=== PATIENT | female | born 1985 | race African-American/Black ===

== ENCOUNTER 2017-07-03 17:20 | Emergency (ER) | payer OTHER, MEDICAID ==
[~2017-07-03] VITALS: Ht 160 cm; Wt 82.6 kg
[2017-07-03 17:26] VITALS: BP 114/62
--- NOTE | 2017-07-03 17:28 | NUR ---
Pt w/c assisted to bed 11.
--- NOTE | 2017-07-03 17:29 | NUR ---
PATIENT PRESENTS TO ED WITH C/O headache since this am with nausea hx migraines; DENIES N/V/D; SKIN IS PINK/WARM/DRY; AAOX4 WITH EVEN AND STEADY GAIT; LUNGS CLEAR BL; HR EVEN AND REGULAR; PT DENIES ANY FEVER, CP, SOB, OR COUGH AT THIS TIME; PATIENT STATES PAIN OF 8/10 AT THIS TIME; VSS; PATIENT POSITIONED FOR COMFORT; HOB ELEVATED; BEDRAILS UP X2; BED DOWN. ER MD MADE AWARE OF PT STATUS.
[2017-07-03] MEDS: diphenhydrAMINE 50 MG/ML VIAL IM ONE (17:56)
[2017-07-03] MEDS: PROCHLORPERAZINE 10 MG/2 ML VIAL IM ONE (17:58)
[2017-07-03 19:10] VITALS: BP 114/62
--- NOTE | 2017-07-03 19:10 | NUR ---
Patient discharged with v/s stable. Written and verbal after care instructions given and explained. Patient alert, oriented and verbalized understanding of instructions. Ambulatory with by parent. All questions addressed prior to discharge. ID band removed. Patient advised to follow up with PMD. Rx of GABAPENTIN given. Patient educated on indication of medication including possible reaction and side effects. Opportunity to ask questions provided and answered.
== END 2017-07-03 19:10 | disposition home or self-care (01) ==
LOC: MED 17:20
DX: G43.909 Migraine, unspecified, not intractable, without status migrainosus (principal)
CPT/HCPCS: 96372; 99284; J0780; J1200

== ENCOUNTER 2021-06-11 04:33 | Inpatient (IN) | payer OTHER, SELFPAY ==
[~2021-06-11] VITALS: Ht 160 cm; Wt 98.9 kg
[2021-06-11 04:35] VITALS: BP 140/78
--- NOTE | 2021-06-11 04:39 | NUR ---
PT BROUGHT TO BED 7 VIA WHEELCHAIR
--- NOTE | 2021-06-11 04:40 | NUR ---
Patient BIB by family from home. C/O abdominal pain x last night, Patient reported, had lower abdominal pain since last night ~ 2200 PM, Took Tylenol , no relief. A/O,X4, lower abdominal pain, cramping, pain rate 10/10, no vomiting or nausea, no vaginal bleeding or discharge. LMP 03/13/2021, ~ 12 weeks.
--- NOTE | 2021-06-11 04:42 | NUR ---
Dr. Sands at bedside to exam patient.
[2021-06-11] MEDS ORDERED: ACETAMINOPHEN EXTRA STRENGTH 500 MG TAB PO ONE (04:50)
--- NOTE | 2021-06-11 05:26 | NUR ---
US at bedside.
[2021-06-11 05:37] LABS: BASOPHILS % (AUTO) 0.3 % (0.0-2.0); EOSINOPHILS # (AUTO) 0.1 K/uL (0-0.4); EOSINOPHILS % (AUTO) 0.8 % (0.0-4.0); HEMATOCRIT 33.3 % (36-48); HEMOGLOBIN 10.6 g/dL (12.0-16.0); LYMPHOCYTES # (AUTO) 2.1 K/uL (2.5-16.5); LYMPHOCYTES % (AUTO) 19.2 % (20.5-51.1); MEAN CORPUSCULAR HEMOGLOBIN 23 pg (27-31); MEAN CORPUSCULAR HGB CONC 32 g/dL (33-37); MEAN CORPUSCULAR VOLUME 71.6 fL (80-94); MONOCYTES % (AUTO) 8.7 % (1.7-9.3); NEUTROPHILS # (AUTO) 7.9 K/uL (1.8-7.7); PLATELET COUNT (AUTO) 290 K/uL (140-450); RED BLOOD CELL COUNT(AUTO) 4.65 MIL/uL (4.20-5.40); RED CELL DISTRIBUTION WIDTH 23.8 % (11.6-13.7); WHITE BLOOD COUNT (AUTO) 11.1 K/uL (4.8-10.8)
[2021-06-11 05:52] LABS: ALBUMIN 3.2 g/dL (3.4-5.0); ANION GAP 16.2 (8-16); CARBON DIOXIDE 21.2 mmol/L (21-32); CREATININE 0.6 mg/dL (0.6-1.3); POTASSIUM 3.4 mmol/L (3.5-5.1); TOTAL BILIRUBIN 0.5 mg/dL (0.0-1.0)
--- NOTE | 2021-06-11 06:28 | NUR ---
Dr. Garber at bedside to exam patient.
[2021-06-11] MEDS ORDERED: fentaNYL citrate 0.05 MG/ML VIAL IVP ONE (06:30)
[2021-06-11] MEDS ORDERED: ONDANSETRON 4 MG/2 ML VIAL IVP ONE (06:30)
[2021-06-11] MEDS ORDERED: HYDR-5191 PO (07:09)
[2021-06-11] MEDS ORDERED: ONDA-188 PO ×2 (07:09→07:30)
--- NOTE | 2021-06-11 07:14 | NUR ---
Report given to ISHAN Samson and endorse care of patient.
--- NOTE | 2021-06-11 07:20 | NUR ---
OPENING NOTE: REPORT RCVD FROM OUTGOING NOC RN, ALL CARES ASSUMED.
--- NOTE | 2021-06-11 07:36 | NUR ---
ASSISTED PATIENT TO RESTROOM, URINE CUP GIVEN FOR SPECIMEN.
--- NOTE | 2021-06-11 07:56 | NUR ---
URINE COLLECTED AND BROUGHT TO LAB GIVEN TO [employer].
--- NOTE | 2021-06-11 07:56 | NUR ---
MD AT BEDSIDE ASSESSING PATIENT, VAGINAL BLEEDING REPORTED BY PATIENT.
--- NOTE | 2021-06-11 08:00 | NUR ---
UPDATES GIVEN TO OUTSIDE, ALL QUESTIONS ANSWERED AT THIS TIME.
[2021-06-11 08:18] LABS: APPEARANCE,URINE SL CLOUDY (CLEAR); BILIRUBIN,URINE NEGATIVE (NEGATIVE); BLOOD, URINE 3+ (NEGATIVE); COLOR,URINE BROWN (YELLOW); LEUKOCYTE ESTERASE ,URINE TRACE (NEGATIVE); NITRITE, URINE NEGATIVE (NEGATIVE); PH,URINE 5.5 (5.0-9.0); UGLUCOSE NEGATIVE (NEGATIVE)
--- NOTE | 2021-06-11 08:19 | NUR ---
UMER SWAB COLLECTED AND BROUGHT TO LAB, GIVEN TO
--- NOTE | 2021-06-11 08:25 | NUR ---
OBGYN TO COME AND SEE PATIENT.
--- NOTE | 2021-06-11 08:59 | NUR ---
OBGYN MD AT BEDSIDE, PELVIC EXAM COMPLETED WITH WITNESS IN ROOM. PER OBGYN, BLEEDING NOTED IN VAGINAL CANAL.
[2021-06-11 09:01] LABS: WBC,URINE 0-5 /HPF (0-5)
[2021-06-11 09:04] LABS: RBC,URINE >100 /HPF (0-5)
--- NOTE | 2021-06-11 09:32 | NUR ---
PATIENT TO BE ADMITTED FOR OBSERVATION UNDER [facility]. PENDING BED AT THIS TIME.
[2021-06-11] MEDS ORDERED: KETOROLAC 30 MG/ML VIAL IVP PRN (09:45)
--- NOTE | 2021-06-11 09:45 | NUR ---
BLOOD CULTURES OBTAINED, 15 MIN APART. BROUGHT TO LAB.
[2021-06-11] MEDS ORDERED: DOCO200C2 PO (09:49)
[2021-06-11] MEDS ORDERED: cefTRIAXone 1,000 MG VIAL ONE (09:53)
--- NOTE | 2021-06-11 11:05 | NUR ---
PLACED PATIENT ONTO BEDPAN
--- NOTE | 2021-06-11 11:15 | NUR ---
ASSISTED PATIENT OFF BEDPAN, DARK YELLOW URINE WITH BLODD TINGED SEDIMENT NOTED.
[2021-06-11] MEDS ORDERED: KETOROLAC 30 MG/ML VIAL IVP SCH (12:00)
--- NOTE | 2021-06-11 12:25 | NUR ---
RN ROUNDS: NEW GOWN GIVEN, EXTRA BLANKETS, BED LOW AND LOCKED FOR SAFETY.
--- NOTE | 2021-06-11 13:30 | NUR ---
LUNCH TRAY BROUGHT TO PATIENT
--- NOTE | 2021-06-11 14:27 | NUR ---
Patient will be admitted to care of . Admited to MS Will go to [id number] Belongings list completed. Report to ISHAN Smallwood. All questions answered.
[2021-06-11 14:45] VITALS: BP 108/53
--- NOTE | 2021-06-11 14:45 | NUR ---
PT ARRIVED ON TO UNIT VIA GURNEY, ACCOMPANIED BY ER NURSE AND TRANSPORTER. PT IS AWAKE, ALERT, AND COOPERATIVE. ABLE TO VERBALIZE NEEDS TO STAFF. RESPIRATIONS ARE EVEN AND UNLABORED, ON ROOM AIR. LUNG SOUNDS CLEAR ON AUSCULTATION. HR IS 76, REGULAR. S1 & S2 NOTED. BOWEL SOUNDS PRESENT IN ALL QUADRANTS. ABD IS SOFT, AND NONTENDER. SKIN IS WARM, DRY, AND INTACT. PT HAS IV TO L AC, 20G. IV IS INTACT AND PATENT. PT IS ON STRICT BED REST PER DR ORDER. MRSA SCREEN DONE. VITALS TAKEN. ALL SAFETY MEASURES IN PLACE. BED IN LOWEST POSITION. CALL LIGHT WITHIN REACH. WILL CONTINUE TO MONITOR.
[2021-06-11] MEDS: LACTATED RINGERS 1,000 ML IV SCH (15:05)
--- NOTE | 2021-06-11 16:40 | NUR ---
PT CALLED TO USE BED ROTH. ASSISTED PT WITH BED ROTH USAGE. PT TOLERATED WELL. WILL CONTINUE TO MONITOR.
[2021-06-11] MEDS: PROMETHAZINE 25 MG TAB PO PRN (18:45)
[2021-06-11] MEDS: oxyCODONE/APAP 5/325 MG 1 TAB TAB PO PRN (18:45)
--- NOTE | 2021-06-11 18:45 | NUR ---
PT COMPLAIN OF PAIN. STATES PAIN IS 7/10. PT STATES SHE DOES NOT WANT THE TORADOL BECAUSE "LAST TIME I HAD IT IN THE ER, I BEGAN TO BLEED A LOT". CALLED DR FUNEZ. GAVE NEW ORDERS FOR PAIN MEDS. ORDERS CARRIED OUT. MEDICATED PT. PT ALSO STATES PAIN MEDS MAKE HER NAUSEATED. MEDICATED PER MD ORDERS. WILL CONTINUE TO MONITOR.
--- NOTE | 2021-06-11 19:20 | NUR ---
ENDORSED PT TO MECHANICAL ASSEMBLY TECHNICIAN NURSE FOR CONTINUITY OF CARE. PT IS STABLE.
--- NOTE | 2021-06-11 19:21 | NUR ---
RECEIVED BEDSIDE REPORT FROM MORNING SHIFT NURSE FOR CONTINUITY OF CARE. PATIENT IS AWAKE AND STABLE. A&OX4. VERBALLY RESPONSIVE AND ABLE TO COMMUNICATE NEEDS. ON ROOM AIR WITH NO APPARENT S/SX OF ACUTE DISTRESS. RESPIRATIONS EVEN AND UNLABORED. PATIENT HAS AN IV ON LAC 22G PATENT/INTACT WITH LR INFUSING AT 50 ML/HOUR. PATIENT IS CONTINENT. PATIENT IS ON COMPLETE BEDREST. POC AND WHITE COMMUNICATION BOARD UPDATED. ALL SAFETY MEASURES IN PLACE. BED IN LOW/LOCKED POSITION. CALL LIGHT WITHIN REACH. WILL CONTINUE TO MONITOR.
--- NOTE | 2021-06-11 19:30 | NUR ---
Patient's Plan of Care was discussed and reviewed with LUMP INSPECTOR: WILMAR ARIZA
[2021-06-11 20:00] VITALS: BP 119/57
--- NOTE | 2021-06-11 21:10 | NUR ---
ASSESSED PATIENT'S PAIN LEVEL AND PATIENT STATED 3/10 IN LEFT LOWER ABDOMEN. PATIENT REPORTS PAIN IS MILD AND TOLERABLE AND STATED "I WILL PROBABLY BE ABLE TO SLEEP TONIGHT". REASSURED PATIENT THAT FREQUENT ROUNDS WILL BE MADE TO ASSESS HER PAIN LEVEL THROUGHOUT THE SHIFT. RESPIRATIONS EVEN AND UNLABORED WITH NO APPARENT S/SX OF ACUTE DISTRESS. SNACKS PROVIDED. WHITE COMMUNICATION BOARD UPDATED. ALL SAFETY MEASURES IN PLACE. CALL LIGHT WITHIN REACH. WILL CONTINUE TO MONITOR.
--- NOTE | 2021-06-11 23:10 | NUR ---
CHECKED PATIENT. STABLE AND ASLEEP IN RIGHT SIDE-LYING POSITION. CHEST IS RISING AND FALLING SYMMETRICALLY. RESPIRATIONS EVEN AND UNLABORED WITH NO APPARENT S/SX OF ACUTE DISTRESS. WHITE COMMUNICATION BOARD UPDATED. ALL SAFETY MEASURES IN PLACE. CALL LIGHT WITHIN REACH. WILL CONTINUE TO MONITOR.
--- NOTE | 2021-06-12 01:10 | NUR ---
CHECKED PATIENT. STABLE AND ASLEEP. CHEST IS RISING AND FALLING SYMMETRICALLY. RESPIRATIONS EVEN AND UNLABORED WITH NO APPARENT S/SX OF ACUTE DISTRESS. WHITE COMMUNICATION BOARD UPDATED. ALL SAFETY MEASURES IN PLACE. CALL LIGHT WITHIN REACH. WILL CONTINUE TO MONITOR.
--- NOTE | 2021-06-12 03:10 | NUR ---
ROUNDED ON PATIENT. STABLE AND ASLEEP. CHEST IS RISING AND FALLING SYMMETRICALLY. RESPIRATIONS EVEN AND UNLABORED WITH NO APPARENT S/SX OF ACUTE DISTRESS. WHITE COMMUNICATION BOARD UPDATED. ALL SAFETY MEASURES IN PLACE. CALL LIGHT WITHIN REACH. WILL CONTINUE TO MONITOR.
[2021-06-12 04:00] VITALS: BP 110/61
[2021-06-12] MEDS: PROMETHAZINE 25 MG TAB PO PRN (05:33)
[2021-06-12] MEDS: oxyCODONE/APAP 5/325 MG 1 TAB TAB PO PRN (06:00)
[2021-06-12] MEDS: LACTATED RINGERS 1,000 ML IV SCH (07:10)
--- NOTE | 2021-06-12 07:10 | NUR ---
ENDORSED PATIENT TO MORNING SHIFT NURSE FOR CONTINUITY OF CARE. PATIENT IS STABLE.
--- NOTE | 2021-06-12 07:11 | NUR ---
RECEIVED REPORT FROM POLYGRAPH EXAMINER NURSE FOR CONTINUITY OF CARE. PT IN BED RESTING AT THIS TIME. RESPIRATIONS ARE EVEN AND UNLABORED. NO SIGNS OF DISTRESS NOTED. CALL LIGHT WITHIN REACH. ALL SAFETY MEASURES IN PLACE. WILL CONTINUE TO MONITOR.
[2021-06-12 08:00] VITALS: BP 116/62
--- NOTE | 2021-06-12 08:13 | NUR ---
US TEAM AT BEDSIDE TO PERFORM SCHEDULED US. WILL CONTINUE TO MONITOR.
[2021-06-12 10:22] VITALS: BP 116/62
--- NOTE | 2021-06-12 11:41 | NUR ---
WENT OVER DISCHARGE PAPERWORK WITH PT. ANSWERED ALL QUESTIONS. PT SIGNED ALL PAPERWORK. PT DISCHARGED HOME WITH . ALL BELONGINGS TAKEN UPON DISCHARGE.
== END 2021-06-12 11:46 | disposition home or self-care (01) | DRG 833 ==
LOC: MED 04:33 → MMU 09:40 → MTU 14:17
PROVIDERS: ADMIT Obstetrics & Gynecology; ATTEND Obstetrics & Gynecology
DX: O20.0 Threatened abortion (principal); D25.9 Leiomyoma of uterus, unspecified; Z20.822 Contact with and (suspected) exposure to COVID-19; Z88.0 Allergy status to penicillin; Z90.49 Acquired absence of other specified parts of digestive tract; O34.11 Maternal care for benign tumor of corpus uteri, first trimester; Z3A.12 12 weeks gestation of pregnancy
CPT/HCPCS: 36415; 76801; 80053; 81001; 84702; 85025; 86900; 86901; 87040; 96365; 96375; 99285; J0696; J2405; J3010; Q0092; Q0169

== ENCOUNTER 2022-02-23 18:42 | Emergency (ER) | payer OTHER ==
[~2022-02-23] VITALS: Ht 152.4 cm; Wt 101.2 kg
[~2022-02-23 18:42] MED LIST: DOCO200C2 PO; ONDA-188 PO
[2022-02-23 20:07] VITALS: BP 123/88
[2022-02-23 21:14] LABS: RSV NEGATIVE (NEGATIVE)
--- NOTE | 2022-02-23 21:20 | NUR ---
RT ASSESSING PT
[2022-02-23] MEDS ORDERED: ACET-10509 PO (22:21)
[2022-02-23] MEDS ORDERED: IBUP-2213 PO (22:21)
--- NOTE | 2022-02-23 22:55 | NUR ---
PATIENT SEEN AND ASSESSED BY TRUNG STOCKTON. NO NURSING INTERVENTIONS. TRUNG STOCKTON Written and verbal after care instructions given and explained BY TRUNG STOCKTON. Rx of TAMIFLU AND IBUPROFEN given. Patient educated on indication of medication including possible reaction and side effects BY TRUNG STOCKTON. Opportunity to ask questions provided and answered BY TRUNG STOCKTON.
== END 2022-02-23 22:55 | disposition home or self-care (01) ==
LOC: MED 18:42
DX: J06.9 Acute upper respiratory infection, unspecified (principal); Z20.822 Contact with and (suspected) exposure to COVID-19
CPT/HCPCS: 87420; 99283